=== PATIENT | male | born 1995 | race African-American/Black ===

== ENCOUNTER 2018-10-02 14:30 | Emergency (ER) | payer SELFPAY ==
[~2018-10-02] VITALS: Ht 190.5 cm; Wt 99.8 kg
[2018-10-02] MEDS ORDERED: NKM (14:42)
--- NOTE | 2018-10-02 14:45 | NUR ---
ED Nurse Note: c/o left ankle pain; twisted left ankle yesterday while playing basketball; attempted to relieve pain with Motrin and ice.
--- NOTE | 2018-10-02 14:48 | NUR ---
ED Nurse Note: ice provided on the L ankle
--- NOTE | 2018-10-02 16:04 | NUR ---
ED Nurse Note: veronica wrap applied on the L ankle
--- NOTE | 2018-10-02 16:06 | Emergency Room Report ---
History of Present Illness General Chief Complaint: Lower Extremity Injury Source: Patient (Leonor Porter) Present Illness HPI 24-year-old male with no significant past medical history here complaining of pain in left ankle after twisting his ankle in basketball 1 day ago. 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 He is rating the pain is constant, 8 out of 10, without radiation. Thing this ankle since the injury. Advil with minimal relief. He has tingling and numbness. Pain radiation. Denies all other injuries. He also reports he has been evaluated for chronic bronchitis and continues to have pain over his ribs and under his ribs on both sides. Reports the pain worse when changing position. Patient has had chest CT and x-ray all unremarkable. Patient was screened 7 months ago. Denies any eye injury itself. Denies abdominal pain, denies nausea or vomiting. Diarrhea. Vision is able to move his toes without pain. Pain is worsened with dorsiflexion of the foot however flexion and eversion and inversion of the foot does not increase the pain (Leonor Porter) Allergies: Coded Allergies: No Known Allergies (Unverified , 10/02/18) Patient History Past Medical History: see triage record Past Surgical History: unable to obtain Pertinent Family History: none Reviewed Nursing Documentation: PMH: Agreed; PSxH: Agreed (Leonor Porter) Nursing Documentation-PMH Past Medical History: No Stated History (Leonor Porter) Review of Systems All Other Systems: negative except mentioned in HPI (Leonor Porter) Physical Exam Vital Signs Date Time Temp Pulse Resp B/P (MAP) Pulse Ox O2 Delivery O2 Flow Rate FiO2 10/02/18 14:40 98.4 85 14 143/76 97 Room Air Sp02 EP Interpretation: reviewed, normal General Appearance: normal inspection, well appearing, no apparent distress, alert Head: normocephalic Eyes: bilateral eye normal inspection, bilateral eye PERRL ENT: normal ENT inspection, normal pharynx Neck: normal inspection, full range of motion, supple Respiratory: normal inspection, lungs clear, no rhonchi, no wheezing Cardiovascular #1: normal inspection, normal peripheral pulses, no edema, no murmur Cardiovascular #2: 2+ dorsalis pedis (R), 2+ dorsalis pedis (L) Gastrointestinal: normal inspection, soft Rectal: deferred Genitourinary: deferred Musculoskeletal: back normal, digits/nails normal, swelling - left lateral ankle Neurologic: normal inspection, alert, oriented x3 Psychiatric: normal inspection, judgement/insight normal Skin: normal inspection, normal color, no rash Lymphatic: normal inspection, no adenopathy (Leonor Porter) Medical Decision Making PA Attestation all diagnosis and treatment plans were reviewed and discussed my supervising physician Dr. Foley (Leonor Porter) Diagnostic Impression: Primary Impression: Ankle sprain Additional Impression: Chest wall pain, chronic ER Course 24-year-old male with no significant past medical history here complaining of pain in left ankle after twisting his ankle in basketball 1 day ago. 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 He is rating the pain is constant, 8 out of 10, without radiation. Thing this ankle since the injury. Advil with minimal relief. He has tingling and numbness. Pain radiation. Denies all other injuries. He also reports he has been evaluated for chronic bronchitis and continues to have pain over his ribs and under his ribs on both sides. Reports the pain worse when changing position. Patient has had chest CT and x-ray all unremarkable. Patient was screened 7 months ago. Denies any eye injury itself. Denies abdominal pain, denies nausea or vomiting. Diarrhea. Vision is able to move his toes without pain. Pain is worsened with dorsiflexion of the foot however flexion and eversion and inversion of the foot does not increase the pain Ddx considered but are not limited to ankle sprain, ankle fracture, ankle dislocation, chronic chest wall pain Vital signs: are WNL, pt. is afebrile H&PE are most consistent with ankle sprain, chronic chest wall pain ORDERSleft ankle x-ray, naproxenl ED INTERVENTIONS: None required at this time. Jose Cruz wrap Was applied crutches were given DISCHARGE: At this time pt. is stable for d/c to home. Will provide printed patient care instructions, and any necessary prescriptions. Care plan and follow up instructions have been discussed with the patient prior to discharge. . he refuses a note for school. Alternate between icing and heating, elevate your leg, follow with her primary care provider. half primary care provider ordered chest CT, abdominal CT to further investigate the reason behind chronic pain as patient is denying any pain at the time of the visit (Leonor Porter) Other X-Ray Diagnostic Results Other X-Ray Diagnostic Results : X-Ray ordered: left ankle # of Views/Limited Vs Complete: 3 View Indication: Swelling EP Interpretation: Yes PA Xray: Interpretation reviewed, by supervising MD, and agrees with findings. Interpretation: no dislocation, no soft tissue swelling, no fractures Impression: No acute disease Electronically Signed by: leonor HAY Scribe Text FINDINGS: Bones/joints: Unremarkable. No visible displaced ankle fracture or dislocation. Ankle mortise and talar dome appear unremarkable. Visualized joint spaces appear unremarkable. Soft tissues: Soft tissue swelling overlying the lateral malleolus. IMPRESSION: Soft tissue swelling overlying the lateral malleolus. (Leonor Porter) Other X-Ray Diagnostic Results : Electronically Signed by: BHARTI documentation reviewed by me and is accurate, Zuhair Foley MD (Zuhair Foley MD) Last Vital Signs Date Time Temp Pulse Resp B/P (MAP) Pulse Ox O2 Delivery O2 Flow Rate FiO2 10/02/18 14:40 98.4 85 14 143/76 97 Room Air (Leonor Porter) Disposition: HOME, SELF-CARE Condition: Stable Scripts Naproxen* (NAPROXEN*) 500 Mg Tablet 500 MG ORAL TWICE A DAY, #30 TAB Prov: Leonor Porter 10/02/18 Referrals: NOT CHOSEN IPA/,REFERRING (PCP) Patient Instructions: Ankle Sprain Additional Instructions: take medication as directed, alternating icing and heating, elevated urobilinogen as much as he can, avoid strenuous physical activity and avoid sports at least for 2 weeks Leonor Porter Oct 02, 2018 16:06 Zuhair Foley MD Oct 03, 2018 14:16
[2018-10-02] MEDS ORDERED: NAPROXEN500 M2 ORAL (16:07)
--- NOTE | 2018-10-02 16:07 | Diagnostic Imaging Report ---
EXAM: XR Left Ankle Complete, 3 or More Views CLINICAL HISTORY: TRAUMA TECHNIQUE: Frontal, lateral and oblique views of the left ankle. COMPARISON: No relevant prior studies available. FINDINGS: Bones/joints: Unremarkable. No visible displaced ankle fracture or dislocation. Ankle mortise and talar dome appear unremarkable. Visualized joint spaces appear unremarkable. Soft tissues: Soft tissue swelling overlying the lateral malleolus. IMPRESSION: Soft tissue swelling overlying the lateral malleolus.
[2018-10-02 16:18] VITALS: BP 143/76
--- NOTE | 2018-10-02 16:19 | NUR ---
ED Nurse Note: Patient is being discharged from medical care. Awake, alert and oriented x4. After care instructions, were given. Patient verbalized understanding of After care instructions. All medical devices such as ID band were removed. Patient ambulated out with all personal belongings with crutches provided
== END 2018-10-02 16:22 | disposition home or self-care (01) ==
LOC: EMR 15:27
DX: S93.402A Sprain of unspecified ligament of left ankle, initial encounter (principal); R07.9 Chest pain, unspecified; X50.1XXA Overexertion from prolonged static or awkward postures, initial encounter; Y93.67 Activity, basketball
CPT/HCPCS: 99283